=== PATIENT | female | born 1985 | race African-American/Black ===

== ENCOUNTER 2021-08-22 21:29 | Emergency (ER) | payer MEDICAID ==
[~2021-08-22] VITALS: Ht 154.9 cm; Wt 66.0 kg
[~2021-08-22 21:29] MED LIST: PRENATAL VIT
[2021-08-22] MEDS ORDERED: SODIUM CHLORIDE 0.9% 1,000 ML IV SCH (22:30)
[2021-08-22] MEDS ORDERED: FAMOTIDINE 20MG/2ML VIAL IV ONE (22:30)
[2021-08-22] MEDS ORDERED: DIPHENHYDRAMINE 50MG/ML VIAL IV ONE (22:30)
[2021-08-22] MEDS ORDERED: METHYLPREDNISOLONE SOD SUCC 125 MG/2 ML VIAL IV ONE (22:30)
[2021-08-22] MEDS ORDERED: FAMOTIDINE 20MG/2ML VIAL IV NR (23:30)
[2021-08-23] MEDS ORDERED: DIPH25CA83 MT (00:21)
[2021-08-23] MEDS ORDERED: P20 MT (00:21)
[2021-08-23 01:33] VITALS: BP 112/74
== END 2021-08-23 01:33 | disposition home or self-care (01) ==
LOC: ER 21:29
DX: T78.40XA Allergy, unspecified, initial encounter (principal); F12.10 Cannabis abuse, uncomplicated; Z88.0 Allergy status to penicillin; X58.XXXA Exposure to other specified factors, initial encounter
CPT/HCPCS: 96361; 96374; 96375; 99284; J1200; J2930; J3490; Z7610